=== PATIENT | male | born 1975 | race African-American/Black ===

== ENCOUNTER 2017-04-10 23:33 | Emergency (ER) | payer SELFPAY ==
[~2017-04-10] VITALS: Ht 182.9 cm; Wt 91.0 kg
[2017-04-11] MEDS ORDERED: KETOROLAC 60MG/2ML VIAL IM ONE (00:30)
[2017-04-11 02:30] VITALS: BP 135/84
== END 2017-04-11 02:30 | disposition home or self-care (01) ==
LOC: ER 04-11 00:13
DX: S40.921A Unspecified superficial injury of right upper arm, initial encounter (principal); F17.200 Nicotine dependence, unspecified, uncomplicated; X58.XXXA Exposure to other specified factors, initial encounter; Y93.89 Activity, other specified; Y92.89 Other specified places as the place of occurrence of the external cause; Y99.8 Other external cause status
CPT/HCPCS: 72040; 96372; 99284; J1885; Z7610